=== PATIENT | male | born 1995 | race Caucasian/White ===

== ENCOUNTER 2017-02-19 16:39 | Emergency (ER) | payer MEDICAID ==
[~2017-02-19] VITALS: Ht 185.4 cm; Wt 91.0 kg
[2017-02-19 16:43] VITALS: BP 106/52
[2017-02-19] MEDS ORDERED: SODIUM CHLORIDE 0.9% 1,000ML IVBOLUS ONE (17:30)
[2017-02-19 18:11] LABS: BLOOD UREA NITROGEN 16 mg/dL (7-18)
== END 2017-02-19 18:49 | disposition home or self-care (01) ==
LOC: ED 18:46
DX: E86.0 Dehydration (principal)
CPT/HCPCS: 36415; 80048; 82040; 99284; J7030

== ENCOUNTER 2017-11-04 15:00 | Emergency (ER) | payer MEDICAID ==
[~2017-11-04] VITALS: Ht 190.5 cm; Wt 100.0 kg
[2017-11-04 15:17] VITALS: BP 127/83
== END 2017-11-04 15:56 | disposition home or self-care (01) ==
LOC: ED 15:50
DX: R41.0 Disorientation, unspecified (principal)
CPT/HCPCS: 99283